=== PATIENT | female | born 1980 | race Caucasian/White ===

== ENCOUNTER 2018-02-05 04:14 | Inpatient (IN) | payer BC ==
[2018-02-05 05:27] LABS: ABS Basophils 0.1 10^3/ul (0-0.2); ABS Eosinophils 0.1 10^3/ul (0-0.6); ABS Lymphocytes 2.5 10^3/ul (1.0-4.8); ABS Monocytes 0.9 10^3/ul (0-0.8); ABS Neutrophils 7.3 10^3/ul (1.5-7.7); ABS Nucleated RBC 0 10^3/ul; Hematocrit 35 % (35-47); Hemoglobin 11.8 g/dl (12.0-16.0); Lymphocyte % 23.3 % (25-47); Mean Corpuscular HGB Conc 34 g/dl (31-36); Mean Corpuscular Hemoglobin 32 pg (27-31); Mean Corpuscular Volume 94 fL (80-97); Nucleated Red Blood Cells % 0; Platelet Count 230 10^3/ul (150-450); Red Blood Count 3.72 10^6/ul (4.0-5.4); Red Cell Distribution Width 14 % (10.5-15); White Blood Count 10.8 10^3/ul (3.5-10.8)
--- NOTE | 2018-02-05 05:53 | HP ---
General Information - General Information Maternal Age: 37 Grav: 1 Para: 0 SAB: 0 IEA: 0 Estimated Due Date: 03/10/18 Determined By: Early Ultrasound Gestational Age in Weeks and Days: 35 Weeks and 2 Days Maternal Blood Type and Rh: A Positive - Results this Serology/RPR Result: Non-Reactive Rubella Result: Immune HBsAg Result: Negative HIV Result: Negative Past Medical History Pertinent Past Medical History: Non-Contributory Pertinent Past Surgical History: See Records Past Surgical History Comment: Hysteroscopy/laparoscopy 2017 Multiple ortho surgeries shoulder 2004, 2005 Knee 2014 Pins in finger 2017 Pertinent Family History: Non-Contributory - Antepartal Records Antepartal Records: Reviewed, Complicated by: - hypothyroidism, IVF, FATUMA 24, breech position Review of Systems Constitutional: Comfortable CV Complaint: No Respiratory: Shortness of Breath: No Gastrointestinal: No Nausea/Vomiting, Normal Bowel Movement Genitourinary: Leaking Fluid, No Dysuria, No Bleeding Musculoskeletal: No Complaint - mild cramps Neurological: No Headache Movement: Normal Exam Allergies/Adverse Reactions: Allergies cefazolin Allergy (Intermediate, Verified 02/05/18 05:24) Hives BP 119/71 T 98.5 RR 18 HR 94 O2 98 Lab Values - Entire Visit: Laboratory Tests 02/05/18 02/05/18 02/05/18 04:58 05:10 05:10 WBC 10.8 RBC 3.72 L Hgb 11.8 L Hct 35 MCV 94 MCH 32 H MCHC 34 RDW 14 Plt Count 230 MPV 9.0 Neut % (Auto) 67.2 Lymph % (Auto) 23.3 L Millard % (Auto) 8.0 H Eos % (Auto) 1.0 Baso % (Auto) 0.5 Absolute Neuts (auto) 7.3 Absolute Lymphs (auto) 2.5 Absolute Monos (auto) 0.9 H Absolute Eos (auto) 0.1 Absolute Basos (auto) 0.1 Absolute Nucleated RBC 0 Nucleated RBC % 0 Vag Amniotic Fld Detect Positive Blood Type A Positive - Measurements Height: 5 ft 3 in Weight: 193 lb Weight in lbs: 193 Body Mass Index (BMI): 34.2 Pre- Weight: 205 lb Weight Gained This : -12 lbs and 0 ozs - Exam Abdomen: No Upper Quadrant Pain Breast: Breast Exam Deferred CVA: No CVA Tenderness Extremities: No Edema Heart: Normal Rhythm/Heart Sounds HEENT: No Significant Findings Lungs: Clear Bilaterally Rectal: Rectal Exam Deferred Reflexes: DTR 2+ - no clonus - Cervical Exam deferred - Abdominal Exam Abdomen Exam: Non-Tender - Membranes Membrane Status: SROM - 0330 - Ultrasound/Biophysical Profile Ultrasound Status: Bedside Exam - Transverse, head RUQ EFM Findings - External Monitor Findings Baseline Heart Rate: 135 External Monitor Findings: Accelerations Present, No Pattern of Variable or Late Decelerations, Variability Moderate Contractions: Irregular, Mild, < 45 Seconds Contraction Frequency: Q10 Assessment/Plan - Reason for Visit Reason for Visit: IUP @ 35+2 weeks gestation, PPROM. No evidence metabolic acidemia. Variable position breech/transverse. - Obstetrical Risk Factors Obstetrical Risk Factors: GBS Unknown, , Assisted Reproduction Risk Factors Comment: Transverse lie - Plan Plan Comment: Consult with Dr Sparrow. Expedite CS vs betamethasone and expectant management. Patients to consider. See MD note for final plan. - Date/Time of Admission Date of Admission: 02/05/18 Time of Admission: 05:17
[2018-02-05] MEDS ORDERED: Ampicillin IV* 2 GM in NS 0.9% 100 ML* 100 ML IVPB SCH ×2 (06:00→06:30)
[2018-02-05] MEDS ORDERED: ceFOXitin 2 GM IVPREMIX* 2 GM/50 ML BAG IVPB ONE (07:58)
[2018-02-05] MEDS ORDERED: Sodium Citrate/Citric Acid* 15 ML UDC ONE (08:08)
[2018-02-05] MEDS ORDERED: Morphine PF AMP (0.5MG/ML)* 5 MG/10 ML AMP ONE (08:09)
[2018-02-05] MEDS ORDERED: NS 0.9% 100 ML* 100 ML with ceFOXitin(*) 2 GM IVPB ONE ×2 (08:15)
[2018-02-05] MEDS ORDERED: Bupivacaine-MPF SPINAL* 7.5 MG/2 ML AMP ONE (08:28)
[2018-02-05] MEDS ORDERED: Bupivacaine 0.5% SDV PF* 10-30ML VIAL ONE (08:28)
[2018-02-05] MEDS ORDERED: Ondansetron INJ* 2 MG/ML VIAL ONE (08:39)
[2018-02-05] MEDS ORDERED: Metoclopramide IV* 5 MG/ML 2 ML VIAL ONE (08:39)
[2018-02-05] MEDS ORDERED: Phenylephrine INJ* 10 MG/ML 1 ML VIAL (10 MG) ONE (08:40)
[2018-02-05] MEDS ORDERED: Dexamethasone IV* 4 MG/ML 1 ML (4 MG) ONE (08:54)
[2018-02-05] MEDS ORDERED: OXYTOCIN* 10 UNITS/ML 1 ML VIAL ONE (08:56)
[2018-02-05] MEDS ORDERED: Ketorolac INJ* 30 MG/ML 1 ML VIAL ONE (09:29)
[2018-02-05] MEDS ORDERED: Witch Hazel PAD* JAR TOPICAL PRN (09:41)
[2018-02-05] MEDS ORDERED: Zolpidem TAB* 5 MG PO PRN (09:41)
[2018-02-05] MEDS ORDERED: Glycerin ADULT SUPP PR PRN (09:41)
[2018-02-05] MEDS ORDERED: Dibucaine 1% 28.35 GM TUBE PR PRN (09:41)
[2018-02-05] MEDS ORDERED: Naloxone* 0.4 MG/ML 1 ML VIAL IV PRN ×2 (09:45→09:46)
[2018-02-05] MEDS ORDERED: Sodium Citrate/Citric Acid* 15 ML UDC PO ONE (09:45)
[2018-02-05] MEDS ORDERED: Levalbuterol 0.63MG/3ML NEB* UNIT OF USE INH PRN (09:45)
[2018-02-05] MEDS ORDERED: Ketorolac INJ* 30 MG/ML 1 ML VIAL IV PRN (09:46)
[2018-02-05] MEDS ORDERED: oxyCODONE/Acetamin 5/325 MG* TAB PO PRN ×2 (09:46)
[2018-02-05] MEDS ORDERED: Scopolamine 1.5 mg* PATCH TRANSDERM PRN (09:46)
[2018-02-05] MEDS ORDERED: diPHENhydraMINE IV* 50 MG/ML 1 ml VIAL (BENADRYL) IV PRN (09:46)
[2018-02-05] MEDS ORDERED: PROCHLORPERAZINE INJ 5 MG/ML 2 ML VIAL IV PRN (09:46)
[2018-02-05] MEDS ORDERED: Nalbuphine* 20 MG/ML 1 ML VIAL IV PRN ×2 (09:46)
[2018-02-05] MEDS ORDERED: DiMENhydriNATE IV* 50 MG/ML VIAL IV PUSH PRN (09:46)
[2018-02-05] MEDS ORDERED: Ondansetron INJ* 2 MG/ML VIAL IV PRN (09:46)
[2018-02-05] MEDS ORDERED: Oxytocin in LR* 20 UNITS/1,000 ML BAG IVPB SCH (10:00)
[2018-02-05] MEDS: Acetaminophen TAB* 325 MG PO SCH ×4 (13:10→21:50)
[2018-02-05] MEDS: Simethicone TAB* 80 MG TAB.CHEW PO SCH ×3 (13:10→21:51)
[2018-02-05] MEDS: Docusate CAP* 100 MG PO SCH ×2 (13:10→21:51)
--- NOTE | 2018-02-05 13:45 | OP ---
OPERATIVE REPORT: DATE OF OPERATION: 02/05/18 - [facility] DATE OF : 76 SURGEON: Seng Sparrow MD SKIN LAP BONDER: Elvie Fonseca CM ANESTHESIOLOGIST: Reynold Sanchez MD ANESTHESIA: Spinal with Duramorph. PRE-OP DIAGNOSIS: Transverse lie, 35 weeks, premature rupture of membranes. POST-OP DIAGNOSIS: Transverse lie, 35 weeks, premature rupture of membranes. OPERATIVE PROCEDURE: Low transverse section. ESTIMATED BLOOD LOSS: 600 cc. FINDINGS: Included a viable male, Apgars 9 and 9, weight was 5 pounds 6 ounces , and normal-appearing uterus, fallopian tubes, and ovaries. DESCRIPTION OF PROCEDURE: The patient identified and procedure identified as low transverse section. The patient was taken to the operating room, prepped and draped in the usual fashion in the left lateral recumbent position under spinal anesthesia. A Pfannenstiel incision was made in the abdomen and carried down through fat, fascia, and peritoneum. A transverse incision was made in the lower uterine segment and extended laterally using blunt dissection. The above was delivered in the breech extraction manner without difficulty. There was a nuchal cord x1, which was looped off. Cord was doubly clamped and cut and the infant was handed to the awaiting child health associate. Cord blood was obtained. Placenta delivered spontaneously. The uterus was wiped out with a wet lap sponge. The uterine incision was then closed using 0 Polysorb in a running fashion. A second layer was used to imbricate the first layer. Good hemostasis was achieved with 0 Polysorb figure- of-8 sutures. The uterus was placed back in the abdominal cavity. The gutters were wiped out with a wet lap sponge. Good hemostasis was verified. The peritoneum was then closed using 3-0 Polysorb in a running fashion. Good hemostasis achieved in the subrectus layers. The fascia was closed using 0 Polysorb in a running fashion. The space in the incision above the rectus fascia was closed using 3-0 Polysorb in a simple fashion. The skin was closed with 4-0 Monocryl in a subcuticular fashion and Steri-Strips were applied. All sponge and instrument counts were correct and the patient returned to the recovery room in stable condition. [id number]/[facility] #: [id number] [facility]
[2018-02-06] MEDS ORDERED: Acetaminophen TAB* 325 MG PO PRN (00:15)
[2018-02-06] MEDS ORDERED: oxyCODONE/Acetamin 5/325 MG* TAB PO PRN ×2 (01:45)
[2018-02-06] MEDS: Levothyroxine TAB* 25 MCG TAB PO SCH (06:26)
[2018-02-06 06:57] LABS: ABS Basophils 0.1 10^3/ul (0-0.2); ABS Eosinophils 0.1 10^3/ul (0-0.6); ABS Lymphocytes 2.8 10^3/ul (1.0-4.8); ABS Monocytes 1.3 10^3/ul (0-0.8); ABS Neutrophils 10.6 10^3/ul (1.5-7.7); ABS Nucleated RBC 0 10^3/ul; Eosinophil % 0.7 % (0-6); Hematocrit 33 % (35-47); Hemoglobin 11.1 g/dl (12.0-16.0); Mean Corpuscular HGB Conc 34 g/dl (31-36); Mean Corpuscular Hemoglobin 32 pg (27-31); Mean Corpuscular Volume 94 fL (80-97); Nucleated Red Blood Cells % 0; Platelet Count 204 10^3/ul (150-450); Red Cell Distribution Width 14 % (10.5-15); White Blood Count 14.9 10^3/ul (3.5-10.8)
[2018-02-06] MEDS: Docusate CAP* 100 MG PO SCH ×3 (07:44→19:37)
[2018-02-06] MEDS ORDERED: Ferrous Gluconate TAB* 324 MG TAB PO SCH (09:00)
[2018-02-06] MEDS: Simethicone TAB* 80 MG TAB.CHEW PO SCH ×4 (09:05→19:37)
[2018-02-06] MEDS: Ibuprofen TAB* 600 MG PO PRN ×2 (13:28→19:36)
[2018-02-07] MEDS: Ibuprofen TAB* 600 MG PO PRN ×4 (01:10→19:58)
[2018-02-07] MEDS: Levothyroxine TAB* 25 MCG TAB PO SCH (06:09)
[2018-02-07] MEDS: Simethicone TAB* 80 MG TAB.CHEW PO SCH ×4 (07:45→19:58)
[2018-02-07] MEDS: Docusate CAP* 100 MG PO SCH ×3 (07:45→19:58)
[2018-02-08] MEDS: Levothyroxine TAB* 25 MCG TAB PO SCH (06:01)
[2018-02-08] MEDS: Ibuprofen TAB* 600 MG PO PRN ×3 (06:01→17:48)
[2018-02-08 08:10] VITALS: BP 113/79
[2018-02-08] MEDS: Simethicone TAB* 80 MG TAB.CHEW PO SCH ×3 (09:31→17:48)
[2018-02-08] MEDS ORDERED: Scopolamine PATCH Remove* 1 NOTE MISC PATCH OFF PRN (09:47)
[2018-02-08] MEDS: Docusate CAP* 100 MG PO SCH ×2 (17:39→17:40)
== END 2018-02-08 17:50 | disposition home or self-care (01) | DRG 540 ==
LOC: MCHOBOUT 04:14 → MCHOB 05:17
PROVIDERS: ADMIT Midwife; ATTEND Obstetrics & Gynecology
PROC: 4A1HXCZ Monitoring of Products of Conception, Cardiac Rate, External Approach (ICD-10-PCS; 2018-02-05)
PROC: 10D00Z1 Extraction of Products of Conception, Low, Open Approach (ICD-10-PCS; principal; 2018-02-05 08:15)
DX: O42.013 Preterm premature rupture of membranes, onset of labor within 24 hours of rupture, third trimester (principal); O40.3XX0 Polyhydramnios, third trimester, not applicable or unspecified; O99.284 Endocrine, nutritional and metabolic diseases complicating childbirth; E03.9 Hypothyroidism, unspecified; O32.1XX0 Maternal care for breech presentation, not applicable or unspecified; O99.334 Smoking (tobacco) complicating childbirth; F17.200 Nicotine dependence, unspecified, uncomplicated; O32.2XX0 Maternal care for transverse and oblique lie, not applicable or unspecified; O69.81X0 Labor and delivery complicated by cord around neck, without compression, not applicable or unspecified; Z3A.35 35 weeks gestation of pregnancy; Z88.1 Allergy status to other antibiotic agents; Z37.0 Single live birth
CPT/HCPCS: 36415; 84112; 85025; 86850; 86900; 86901; 87070; 87205; 88307; A9270-GY; J0290; J0694; J1100; J1885; J2405; J2590; J2765